=== PATIENT | male | born 1940 | race Caucasian/White ===

== ENCOUNTER 2019-02-07 20:42 | Inpatient (IN) ==
[2019-02-07] MEDS ORDERED: ASPIRIN PO ONE (21:09)
[2019-02-07] MEDS ORDERED: DUONEB (A & A) INH ONE ×2 (21:33→23:15)
[2019-02-07] MEDS ORDERED: SOLU-MEDROL IV ONE (21:37)
[2019-02-07] MEDS ORDERED: LEVAQUIN 750 MG/D5W 750 MG/150 ML IVPB IV ONE (21:38)
[2019-02-07] MEDS ORDERED: SOLU-MEDROL ONE (21:40)
--- NOTE | 2019-02-07 21:48 | Diag Imaging Result Doc PS360 ---
EXAM: CHEST-PORTABLE 02/07/2019 HISTORY: SOB TECHNIQUE: AP portable at 2 COMMENT: There is no evidence of acute cardiac or pulmonary disease. Compared to 03/13/2017 there has been no significant change in the appearance of the chest. IMPRESSION: No acute disease. Electronically signed by Dalton Small 02/07/2019 9:46 PM
[2019-02-07 22:06] LABS: BASO# 0.02 X1000 (0.0-0.2); BASO% 0.3 % (0.0-0.8); EOS% 5.4 % (0.0-10.0); HEMATOCRIT 49.8 % (42.0-52.0); HEMOGLOBIN 16.3 g/dL (14.0-18.0); LYMPH# 1.43 X1000 (1.2-3.4); LYMPH% 19.4 % (20.5-51.1); MCH 30.8 PG (27-31); MCHC 32.7 g/dL (33-37); MCV 94.1 FL (81-99); MONO# 0.71 X1000 (0.11-0.59); MONO% 9.6 % (1.7-9.3); MPV 10.5 FL (7.4-10.4); NEUT# 4.83 X1000 (1.4-6.5); NEUT% 65.3 % (42.2-75.2); PLT 207 X1000 (130-400); RBC 5.29 XMIL (4.7-6.1); RDW 12.9 % (11.5-14.5); WBC 7.39 X1000 (4.8-10.8)
[2019-02-07 22:12] LABS: INR 2.38; PROTIME 27.7 Seconds (11.0-16.0); PTT 43.1 Seconds (22.3-41.8)
[2019-02-07 22:36] LABS: ALB/GLOB RATIO 1.8; ALBUMIN 4.4 g/dL (3.5-5.0); CALCIUM 8.9 mg/dL (8.8-10.2); CREATININE 1.2 mg/dL (0.7-1.2); POTASSIUM 4.1 mmol/L (3.5-5.1); TOTAL BILIRUBIN 0.7 mg/dL (0.20-1.00); TOTAL PROTEIN 6.9 g/dL (6.3-8.3)
[2019-02-07 22:49] LABS: ALLEN TEST YES; BE 1.9 mmoll (-3.0-3.0); BLOOD TYPE ARTERIAL; HCO3-(ACT) 26.1 mmoll (20.0-26.0); O2(CT) 20.1 mL/dL (15.0-23.0); PCO2(98.6) 41 mmHg (35-45); PO2(98.6) 51 mmHg (60-100); SAMPLE BLOOD; THB 16.1 g/dL (11.5-17.4); pH(98.6) 7.42 (7.35-7.45)
[2019-02-07 22:52] LABS: MODALITY CANNULA; O2HB 89.2 % (95.0-99.0)
[2019-02-07 23:08] LABS: CK INDEX 1.9 (0.0-2.5); CK-MB 5.23 ng/mL (0.0-5.0)
[2019-02-08] MEDS ORDERED: LASIX IV ONE (01:55)
--- NOTE | 2019-02-08 01:57 | PROVIDER DOCUMENTATION ---
This chart was entered by Shruthi Higginbotham Scribe, acting as scribe for Francie Calderon MD. HPI-Respiratory General - General Chief Complaint: Shortness of Breath Stated Complaint: CHEST PAIN/SOB Time Seen by Provider: 02/07/19 21:21 Source: patient, family Allergies/Adverse Reactions: Patient Allergies Allergy/AdvReac Type Severity Reaction Status Date / Time No Known Allergies Allergy Verified 02/07/19 22:58 Home Medications: Home Medication List Medication Instructions Recorded Confirmed Last Taken Type Cholecalciferol (Vitamin D3) [D3 1,000 unit PO DAILY 08/04/17 02/07/19 08/11/17 09:00 History Dots] Garlic 1,000 mg PO DAILY 08/04/17 02/07/19 02/07/19 History Metoprolol Succinate E.r. [Toprol 25 mg PO DAILY 08/04/17 02/07/19 02/06/19 History Xl] Multivitamin [Multivitamins] 1 each PO DAILY 08/04/17 08/12/17 08/11/17 09:00 History Amlodipine Bes/Olmesartan Med 1 each PO DAILY 08/12/17 02/07/19 02/07/19 History [Amlodipine-Olmesartan 5-20 mg] Magnesium 250 mg PO DAILY 08/12/17 02/07/19 08/11/17 09:00 History Turmeric/Turmeric Ext/Pepr Ext 1 each PO DAILY 08/12/17 08/12/17 02/07/19 History [Turmeric Complex 500 mg Cap] Warfarin [Coumadin] 5 mg PO QHS #0 08/13/17 02/07/19 02/06/19 Rx Albuterol Sulfate Inhaler 02/07/19 02/07/19 19:00 History [Ventolin Hfa] Omeprazole 02/07/19 02/07/19 History Tiotropium Br/Olodaterol HCl 02/07/19 02/06/19 History [Stiolto Respimat Inhal Dingess] - History of Present Illness-Resp Nature of Presenting Problem: 79 yom w/family at bedside cc sob, cp starting yesterday. pt is [place]. sts pt said chest tight and sob this am, has productive cough, and used inhalers (has 2) today. cough started last night. pt has hx of copd and sts pt wheezes normally. pt has no o2 at home. pt is nonsmoker, denies alcohol and rec drugs. Review of Systems - Adult - REVIEW OF SYSTEMS - ADULT Constitutional: reports: no symptoms reported. denies: chills, fever, fatique Eyes: reports: no symptoms reported. denies: discharge, dry eyes, blurred vision Ears, Nose, Mouth & Throat: reports: see HPI, hearing loss ([place]). denies: loose teeth, mouth/dental pain, throat pain Cardiovascular: reports: see HPI, chest pain (tightness). denies: heart murmur, orthopnea, palpitations Respiratory: reports: see HPI, chronic cough (copd), excessive sputum production , shortness of breath, wheezing. denies: dyspnea on exertion, hemoptysis, pleurisy Gastrointestinal: reports: no symptoms reported. denies: abdominal pain, diarrhea, nausea, vomiting Genitourinary: reports: no symptoms reported Musculoskeletal: reports: no symptoms reported Integumentary: reports: no symptoms reported Neurological: reports: no symptoms reported. denies: dizziness/vertigo, headache/migraines, numbness Psychiatric: reports: no symptoms reported Endocrine: reports: no symptoms reported Hematologic/Lymphatic: reports: no symptoms reported Allergic/Immunologic: reports: no symptoms reported All Other Systems: Reviewed and Negative Past History - Adult - PAST MEDICAL HISTORY-ADULT Review of Records: reports: Old Records Reviewed, Nursing Assessment Review, Medications Reviewed, Social history reviewed & non-contributory. Major Childhood Illnesses: reports: denies history Cardiovascular: reports: HTN Respiratory: reports: COPD Gastrointestinal: reports: denies history Obstetrical/Gynecological: reports: denies history Genitourinary: reports: prostate cancer Musculoskeletal: reports: denies history Neurological: reports: denies history Endocrine/Immune: reports: denies history Other Conditions: reports: denies history - PRIOR SURGERIES/PROCEDURES Surgical/Procedure History: reports: appendectomy - IMMUNIZATION STATUS Childhood Immunizations: See Nurse Assessment Flu Vaccine: See Nurse Assessment - FAMILY HISTORY Family History: reviewed, not pertinent - SOCIAL HISTORY Smoking: cigarettes, other (former) Substance Use: none/never Physical Exam-General - PHYSICAL EXAM-ADULT Initial Vital Signs Reviewed: Yes - CONSTITUTIONAL General Appearance: appears well, alert, no apparent distress. negative: lethargic, slow to respond, obtunded - EYES Eyes: PERRL/EOMI, pink conjunctivae - HEAD, EARS, NOSE, MOUTH & THROAT HENMT: normocephalic/atraumatic, moist mucous membranes, normal ENT inspection, TMs normal, pharynx normal. negative: angioedema, pharyngeal erythema, tonsillar exudate, TM abnormal, TM obscurred by cerumen, frontal tenderness - NECK Neck: non-tender, full range of motion, supple, normal inspection - RESPIRATORY Respiratory: chest non-tender, no pleuratic chest pain, no respiratory distress, no accessory muscle use, decreased breath sounds (rt mid lobe), wheezing. negative: lungs clear, normal breath sounds, respiratory distress, accessory muscle use, pain on inspiration, pleural rub - CARDIOVASCULAR Cardiovascular: normal peripheral pulses, no edema, no gallop, no JVD, no murmur , tachycardia. negative: regular rate, rhythm, JVD, bradycardia - GASTROINTESTINAL (ABDOMEN) Abdominal Exam: normal bowel sounds, non tender, soft - LYMPHATIC Lymphatic: no adenopathy - MUSCULOSKELETAL Back Exam: normal inspection, no CVA tenderness, no vertebral tenderness Extremity: normal range of motion, non-tender, normal inspection Peripheral Pulses: radial (R): 2+, radial (L): 2+ - SKIN Integumentary: normal color, normal turgor, warm/dry - NEUROLOGIC Neurologic: grossly normal, no motor/sensory deficits - PSYCHIATRIC Psych/Mental Status: normal mood/affect, normal thought content, normal thought process, oriented x 3 - HEART Score HEART Score: History: Slightly Suspicious HEART Score: ECG: Non-Specific Repolarization Disturbance/LBBB/PM HEART Score: Age: > or = 65 Years HEART Score: Risk Factors for Atherosclerotic Disease: 1 or 2 Risk Factors HEART Score: Troponin: < or = Normal Limit Total HEART Score:: 4 Progress - PLAN OF CARE/RESULTS Progress/Plan/Lab Results: Vital Signs - 8 hr 02/07/19 20:43 02/07/19 23:07 Temperature 98.8 F Pulse Rate 103 H 98 H Respiratory Rate 20 20 Blood Pressure 172/93 O2 Sat by Pulse Oximetry 88 L 97 Laboratory Results - last 24 hr 02/07/19 02/07/19 02/07/19 21:55 21:55 21:55 WBC 7.39 RBC 5.29 Hgb 16.3 Hct 49.8 MCV 94.1 MCH 30.8 MCHC 32.7 L RDW Std Deviation 12.9 Plt Count 207 MPV 10.5 H Immature Gran % (Auto) 0.0 Neut % (Auto) 65.3 Lymph % (Auto) 19.4 L Angelina % (Auto) 9.6 H Eos % (Auto) 5.4 Baso % (Auto) 0.3 Immature Gran # (Auto) 0.00 Neut # (Auto) 4.83 Lymph # (Auto) 1.43 Angelina # (Auto) 0.71 H Eos # (Auto) 0.40 Baso # (Auto) 0.02 PT INR PTT (Actin FS) Specimen Type Sample Site pH pCO2 pO2 HCO3 Base Excess Oxyhemoglobin ABG O2 Sat (Calculated) ABG O2 Saturation ABG Carboxyhemoglobin ABG Methemoglobin Theo Test A-a O2 Difference Total Hemoglobin Lactate Liter Flow Blood Gas Modality FiO2 % Sodium 144 Potassium 4.1 Chloride 107 Carbon Dioxide 26 Anion Gap 11 BUN 13 Creatinine 1.2 Estimated GFR/1.73 m2 59 BUN/Creatinine Ratio 11 Glucose 115 H Calculated Osmolality 288 Calcium 8.9 Total Bilirubin 0.70 AST 21 ALT 15 Alkaline Phosphatase 76 Creatine Kinase 281 H Creatine Kinase Index 1.9 CK-MB (CK-2) 5.23 H Troponin T Hye-[id number]-[id number] Pept 1353 H Total Protein 6.9 Albumin 4.4 Globulin 2.5 Albumin/Globulin Ratio 1.8 02/07/19 02/07/19 02/07/19 21:55 21:55 22:42 WBC RBC Hgb Hct MCV MCH MCHC RDW Std Deviation Plt Count MPV Immature Gran % (Auto) Neut % (Auto) Lymph % (Auto) Angelina % (Auto) Eos % (Auto) Baso % (Auto) Immature Gran # (Auto) Neut # (Auto) Lymph # (Auto) Angelina # (Auto) Eos # (Auto) Baso # (Auto) PT 27.7 H INR 2.38 PTT (Actin FS) 43.1 H Specimen Type ARTERIAL Sample Site R BRACHIAL pH 7.42 pCO2 41 pO2 51 L HCO3 26.1 H Base Excess 1.9 Oxyhemoglobin 89.2 L* ABG O2 Sat (Calculated) 20.1 ABG O2 Saturation 92.0 L ABG Carboxyhemoglobin 2.00 ABG Methemoglobin 1.0 Theo Test YES A-a O2 Difference 126.0 Total Hemoglobin 16.1 Lactate 0.90 Liter Flow 3.0 Blood Gas Modality CANNULA FiO2 % 32.0 Sodium Potassium Chloride Carbon Dioxide Anion Gap BUN Creatinine Estimated GFR/1.73 m2 BUN/Creatinine Ratio Glucose Calculated Osmolality Calcium Total Bilirubin AST ALT Alkaline Phosphatase Creatine Kinase Creatine Kinase Index CK-MB (CK-2) Troponin T < 0.010 Czm-[id number]-Qrrtzfgdfvf Pept Total Protein Albumin Globulin Albumin/Globulin Ratio Orders Category Date Time Status Cardiac Monitoring DIRECTED Care 02/07/19 21:10 Active Oxygen Therapy- ED Nursing DIRECTED Care 02/07/19 21:10 Active Saline Loc NOW Care 02/07/19 21:10 Active CHEST-PORTABLE [RAD] Stat Exams 02/07/19 21:10 Completed CTA [CT ANGIOGRM PULMONARY ARTERIES] [CT] Stat Exams 02/07/19 23:46 Taken ABG [RESP] Routine Lab 02/07/19 22:42 Completed CBC WITH ELECTRONIC DIFF [HEME] Stat Lab 02/07/19 21:55 Completed CK PROFILE [SP CHEM] Stat Lab 02/07/19 21:55 Completed COMPREHENSIVE METABOLIC PANEL [CHEM] Stat Lab 02/07/19 21:55 Completed PRO B-NATRIURETIC PEPTIDE Stat Lab 02/07/19 21:55 Completed PROTIME WITH INR [COAG] Stat Lab 02/07/19 21:55 Completed PTT [COAG] Stat Lab 02/07/19 21:55 Completed TROPONIN T Stat Lab 02/07/19 21:55 Completed Albuterol 2.5MG/Ipratrop 0.5MG [Duoneb (A & A)] Med 02/07/19 21:33 Di scontinued 3 ml INH NOW ONE Albuterol 2.5MG/Ipratrop 0.5MG [Duoneb (A & A)] Med 02/07/19 23:15 Discontinued 3 ml INH NOW ONE Aspirin Med 02/07/19 21:09 Discontinued 325 mg PO NOW ONE Furosemide [Lasix] Med 02/08/19 01:55 Discontinued 40 mg IV NOW ONE Levofloxacin 750 mg/D5w [Levaquin 750 mg/D5w] Med 02/07/19 21:38 Discontinued 750 mg in 150 ml IV NOW Methylprednisolone Sod Succ [Solu-Medrol] Med 02/07/19 21:40 Discontinued 125 mg .ROUTE .STK-MED ONE Methylprednisolone Sod Succ [Solu-Medrol] Med 02/07/19 21:37 Discontinued 125 mg IV NOW ONE Aerosol Treatments Routine Oth 02/07/19 21:34 Completed Aerosol Treatments Routine Oth 02/07/19 23:15 Completed Aerosol Treatments Stat Oth 02/07/19 21:34 Completed Aerosol Treatments Stat Oth 02/07/19 23:15 Completed CP/SOB/Palp >45 yrs of Age Stat Oth 02/07/19 21:09 Ordered EKG [EKG] Stat Ther 02/07/19 21:10 Ordered Result Diagrams: 02/07/19 21:55 02/07/19 21:55 - REASSESSMENT Reassessment #1 Time Reassessed: 22:50 (s/p duonebx2) Status: improving 2 Time Reassessed: 23:40 (spoke with dr. Heard for admission copd exac, recommend to have cta done. pending on results prior to admission.) - CONSULTS/PCP/HOSPITALIST Notification #1 *Consult/PCP/Hospitalist*: Dr. Heard Time Discussed: 01:56 Consult Disposition: Admit Departure - Departure Date of Disposition Decision: 02/08/19 Time of Disposition Decision: 01:56 DIAGNOSIS: COPD exacerbation, Elevated brain natriuretic peptide (BNP) level Disposition: ADMITTED INPATIENT 09 Certified Medical Emergency: Emergent Condition: Stable Referrals and Follow-Ups: Mathieu Muñoz DO [Primary Care Provider] - - Critical Care Note This patient required my direct & personal management of CC.: No Attestation - Physician/ SUHA Attestation Patient care was provided by Advanced Practice Provider:: No The physician spent face to face time with patient:: Yes Advanced Practice Provider documentation review:: Supervising physician onsite and consulted in the evaluation and care of this patient. The physician did have a face to face encounter with the patient. This chart was documented by the indicated scribe, (Shruthi Higginbotham Scribe) and accurately reflects the services I performed and decisions made by me, Francie Calderon MD, as attested by the provider's signature.
--- NOTE | 2019-02-08 04:02 | HISTORY AND PHYSICAL ---
PRIMARY CARE PHYSICIAN: Mathieu Muñoz DO. CHIEF COMPLAINT: Shortness of breath and coughing times several days. HISTORY OF PRESENTING ILLNESS: The patient is a 79-year-old male with a history of atrial fibrillation, hypertension and COPD who presented to the emergency department with several days history of worsening shortness of breath and coughing. The patient states that he could not catch his breath. He tried his inhalers; however, he did not have any improvement. He was evaluated in the emergency department, he was given duo nebs and started on Solu-Medrol. He had some improvement; however, due to his presenting symptoms he will require admission for further management. At the time of my examination the patient denied any headache, fever, chills, nausea, vomiting, diarrhea, hemoptysis, melena, or weight changes, but complained of coughing and shortness of breath. PAST MEDICAL HISTORY: Includes atrial fibrillation, hypertension, COPD. PAST SURGICAL HISTORY: Appendectomy, prostatectomy. ALLERGIES: No known drug allergies. CURRENT MEDICATIONS: Include Ventolin inhaler, amlodipine, olmesartan 5/20 one p.o. daily, metoprolol 25 mg p.o. daily, warfarin 5 mg p.o. at bedtime. SOCIAL HISTORY: He is a former smoker. Denies any history of alcohol or illicit drug use. FAMILY HISTORY: No history of coronary disease. REVIEW OF SYSTEM: Fourteen point review of systems is as in the HPI, other systems negative. PHYSICAL EXAMINATION: GENERAL: A cooperative friendly male. He is resting more comfortably now. VITAL SIGNS: Temperature 98.8 degrees, pulse 103, respirations 20, blood pressure 172/93. His O2 saturation is 88%. HEENT: Atraumatic and normocephalic. Extraocular movements intact. PERRLA. NECK: No masses. CHEST: Decreased breath sounds. Scattered wheezes. CARDIOVASCULAR: Regular rate and rhythm. ABDOMEN: Soft. Positive bowel sounds. EXTREMITIES: No edema. NEUROLOGIC: He is awake, alert, and oriented x3. GENITOURINARY: No bladder distention. SKIN: Warm. LABORATORIES AND STUDIES: WBCs 7.39, hemoglobin 16.3, hematocrit 49, platelets 207,000. INR is 2.38. Sodium 144, potassium 4.1, chloride 107, CO2 is 26, BUN is 13, creatinine is 1.2, glucose 115, proBNP is 1353, troponin 0.010. Chest x-ray no acute disease. ASSESSMENT: The patient is a 79-year-old male with a history of atrial fibrillation, hypertension and chronic obstructive pulmonary disease who had presented to the emergency department with several days history of worsening shortness of breath and cough. He was found in the emergency department, clinically to having an exacerbation of chronic obstructive pulmonary disease; however, it was also noted that he had elevated BNP which was suspicious for probable CHF. Subsequently he will require admission for further management. 1. Chronic obstructive pulmonary disease exacerbation. 2. Elevated brain natriuretic peptide, suspected congestive heart failure. 3. Atrial fibrillation. 4. Hypertension. PLAN: 1. We will admit the patient to medical floor with telemetry. 2. We will continue with duo nebs, IV Solu-Medrol and IV antibiotics. 3. We will check an echocardiogram. 4. Continue to monitor the patient on telemetry. 5. We will monitor blood pressures and antihypertensive agent. 6. Restart other home medications. 7. The patient is already on anticoagulation that will suffice for DVT prophylaxis. 8. We will continue to follow, reassess and make further recommendation based on the patient's clinical course. cc: Jeff Heard MD MTDD
[2019-02-08] MEDS: DUONEB (A & A) INH SCH ×6 (04:19→23:35)
[2019-02-08] MEDS: SOLU-MEDROL IV SCH ×3 (06:45→21:34)
--- NOTE | 2019-02-08 07:05 | EKG Report ---
Test Performed on : 02/07/2019 8:49:44 PM Test Reason : SOB Blood Pressure : / mmHG Vent. Rate : 099 BPM Atrial Rate : 069 BPM P-R Int : 000 ms QRS Dur : 120 ms QT Int : 364 ms P-R-T Axes : 000 -74 081 degrees QTc Int : 467 ms Atrial fibrillation. Left axis deviation Anteroseptal infarct , age undetermined Abnormal ECG No previous ECGs available Unconfirmed Result
--- NOTE | 2019-02-08 07:36 | Diag Imaging Result Doc PS360 ---
EXAM: CT ANGIOGRM PULMONARY ARTERIES INDICATION: pe TECHNIQUE: This exam was performed using automated exposure control, adjustment of mA or kV according to patient size, and/or use of iterative reconstruction technique. Thin section axial images and 3-D MIPS were obtained. COMPARISON: None. FINDINGS: There is no evidence of pulmonary embolism. There is mild patchy aortic atherosclerotic calcification. There is no evidence of aortic aneurysm or dissection. There is no cardiomegaly. There are calcified mediastinal and hilar lymph nodes indicating prior granulomatous disease. The lungs are essentially clear. No airspace consolidations are appreciated. There is no pleural fluid collection and no pneumothorax. Limited views of the upper abdomen reveals a small hiatal hernia. There are calcified granulomata throughout the spleen. There is moderate lumbar spondylosis. The bony structures are intact. IMPRESSION: No evidence of pulmonary embolism or other definite acute chest pathology. Electronically signed by Sanjay Higginbotham 02/08/2019 7:33 AM
[2019-02-08 08:45] LABS: INR 2.19
[2019-02-08] MEDS: VITAMIN D PO SCH (10:52)
[2019-02-08] MEDS: TOPROL XL PO SCH (10:52)
[2019-02-08] MEDS: AZOR 10/40 MG PO SCH (14:02)
--- NOTE | 2019-02-08 14:18 | ECHO REPORT ---
ORDER DATE: 02/08/2019 INTERPRETING PHYSICIAN: Dr. Anthony Lee ECHOCARDIOGRAPHIC MEASUREMENTS: 1. Interventricular septum: 1.3 cm. 2. Posterior wall: 0.9 cm. 3. Diastolic diameter: 4.4 cm. 4. Left atrium: 3.9 cm. 5. Aortic root: 3.9 cm. SUMMARY OF THE 2-DIMENSIONAL IMAGIN. Normal left ventricular cavity size. 2. Estimated ejection fraction of 65% to 70%. 3. Aortic valve leaflets are calcified, trileaflet. 4. Pulmonic valve was not well visualized. 5. Tricuspid valve was normal. 6. Mitral valve was normal. 7. There is biatrial enlargement. Tachycardia was not noted. Heart rate varying between 115 to 120 beats per minute. 8. Peak velocity across the tricuspid valve was 3.4 meters per second. 9. Pulmonary artery systolic pressure 57 mmHg. 10. There is mild tricuspid regurgitation. 11. Peak velocity across the aortic valve was 2.6 msec with a mean gradient of 8 mmHg. 12. There is aortic sclerosis associated with mild aortic regurgitation. 13. There is no pericardial effusion or obvious intracardiac mass or thrombus seen. cc: MD Jeff Holley MD
[2019-02-08] MEDS: LEVAQUIN 500 MG/D5W 500 MG/100 ML IVPB IV SCH (21:33)
[2019-02-08] MEDS: COUMADIN PO SCH (21:34)
[2019-02-09] MEDS: DUONEB (A & A) INH SCH ×6 (03:24→23:21)
[2019-02-09] MEDS: SOLU-MEDROL IV SCH ×3 (05:38→21:36)
[2019-02-09 07:27] LABS: INR 2.04; PROTIME 24.6 Seconds (11.0-16.0)
[2019-02-09 07:31] LABS: HEMATOCRIT 43.8 % (42.0-52.0); HEMOGLOBIN 14.3 g/dL (14.0-18.0); IMM GRAN# 0.03 X1000 (0.0-0.04); IMM GRAN% 0.2 % (0.0-0.5); LYMPH# 1.03 X1000 (1.2-3.4); LYMPH% 6.9 % (20.5-51.1); MCH 31.2 PG (27-31); MCHC 32.6 g/dL (33-37); MCV 95.4 FL (81-99); MONO# 0.52 X1000 (0.11-0.59); MONO% 3.5 % (1.7-9.3); MPV 10.9 FL (7.4-10.4); NEUT# 13.33 X1000 (1.4-6.5); NEUT% 89.4 % (42.2-75.2); PLT 200 X1000 (130-400); RBC 4.59 XMIL (4.7-6.1); WBC 14.91 X1000 (4.8-10.8)
[2019-02-09 07:40] LABS: CALCIUM 8.7 mg/dL (8.8-10.2); CREATININE 1.4 mg/dL (0.7-1.2); POTASSIUM 4.3 mmol/L (3.5-5.1)
[2019-02-09] MEDS: VITAMIN D PO SCH (08:09)
[2019-02-09] MEDS: AZOR 10/40 MG PO SCH (08:09)
[2019-02-09] MEDS: TOPROL XL PO SCH (08:10)
[2019-02-09 08:29] LABS: LYMPHS 6 % (21-51); MONO 5 % (1-9); SEGS 89 % (42-75)
--- NOTE | 2019-02-09 12:11 | PROGRESS NOTE ---
DATE: 02/09/2019 SUBJECTIVE: This patient is still complaining of shortness of breath and wheezing. His BUN and creatinine are increased a little bit compared with yesterday. I will stop the olmesartan, and also the amlodipine since the blood pressure has been borderline low, sometimes in the 90s. I will monitor. He is eating okay. OBJECTIVE: Vital Signs: Temperature 97.6 degrees, pulse 111, respiratory rate 18, blood pressure 117/79, and oxygen saturation 94% on 2 L of nasal cannula. HEENT: Head normocephalic. No trauma. PERRLA. Neck: Supple. No JVD. No masses. Central trachea. Chest: Decreased breath sounds globally with prolonged expiratory phase, and expiratory wheezing bilaterally. Abdomen: Soft, nontender, and nondistended. No hepatosplenomegaly. Extremities: No edema. No clubbing. No cyanosis. Neurological: The patient is alert and oriented x3. No focal deficits. LABORATORY: WBC 14.9, hemoglobin 14.3, hematocrit 43.8, and platelets 200,000. Sodium 136, potassium 4.3, chloride 101, bicarbonate 23, BUN 25, creatinine 1.4, glucose 153, and calcium 8.7. ASSESSMENT AND PLAN: 1. COPD exacerbation. He still complains of shortness of breath and wheezing. I will continue with steroids, breathing treatment, oxygen, and pulmonary toilet, levofloxacin, and let's see how he does. 2. Pulmonary hypertension by echo. The pulmonary artery systolic pressure is around 57 mmHg. Likely, this is due to his COPD and probably pulmonary fibrosis. We will continue with the same management. 3. Atrial fibrillation. Continue with metoprolol and anticoagulation. 4. Hypertension. Actually, the blood pressure has been sometimes in the 90s. I will stop the amlodipine and olmesartan because this patient has also an acute kidney injury, and sometimes the blood pressure has been in the 90s. We will monitor. Continue with only metoprolol. 5. Acute on chronic kidney disease. This patient received a dose of Lasix, and also he has been on olmesartan. We will monitor for now. He is eating good. I will monitor. 6. Calcified aortic Valves per echo report. Aware. 7. Leukocytosis likely secondary to steroids. We will monitor. cc: MD ELYSIA Galicia
[2019-02-09] MEDS: MIRALAX PO SCH (16:56)
[2019-02-09] MEDS: LEVAQUIN 500 MG/D5W 500 MG/100 ML IVPB IV SCH (21:37)
[2019-02-09] MEDS: COUMADIN PO SCH (21:37)
[2019-02-10] MEDS: DUONEB (A & A) INH SCH ×3 (03:32→11:03)
[2019-02-10] MEDS: SOLU-MEDROL IV SCH ×3 (04:55→21:38)
[2019-02-10 07:48] LABS: INR 2.06; PROTIME 24.7 Seconds (11.0-16.0)
[2019-02-10 07:48] LABS: HEMATOCRIT 45.2 % (42.0-52.0); IMM GRAN# 0.03 X1000 (0.0-0.04); IMM GRAN% 0.2 % (0.0-0.5); LYMPH# 0.95 X1000 (1.2-3.4); LYMPH% 7.9 % (20.5-51.1); MCH 31.3 PG (27-31); MCHC 33.2 g/dL (33-37); MCV 94.2 FL (81-99); MONO# 0.48 X1000 (0.11-0.59); MPV 10.6 FL (7.4-10.4); NEUT# 10.59 X1000 (1.4-6.5); NEUT% 87.9 % (42.2-75.2); PLT 211 X1000 (130-400); RDW 13.2 % (11.5-14.5); WBC 12.05 X1000 (4.8-10.8)
[2019-02-10 08:04] LABS: CALCIUM 8.9 mg/dL (8.8-10.2); CREATININE 1.3 mg/dL (0.7-1.2); POTASSIUM 4.6 mmol/L (3.5-5.1)
[2019-02-10 08:11] LABS: EOS 2 % (1-10); LYMPHS 6 % (21-51); SEGS 90 % (42-75)
[2019-02-10] MEDS: MIRALAX PO SCH (08:31)
[2019-02-10] MEDS: THERA M PLUS PO SCH (08:32)
[2019-02-10] MEDS: TOPROL XL PO SCH (08:32)
[2019-02-10] MEDS: MAGNESIUM GLUCONATE PO SCH (08:34)
[2019-02-10] MEDS: VITAMIN D PO SCH (08:36)
[2019-02-10] MEDS: XOPENEX NEB INH SCH ×3 (11:30→19:37)
[2019-02-10] MEDS: ATROVENT NEB INH SCH ×3 (11:30→19:37)
[2019-02-10] MEDS ORDERED: NS NEB INH SCH (12:30)
--- NOTE | 2019-02-10 13:54 | PROGRESS NOTE ---
DATE: 02/10/2019 SUBJECTIVE: This patient is still complaining of shortness of breath and wheezing. BUN increased a little bit compared with yesterday, but creatinine decreased from 1.3 to 1.2. His last creatinine was done in 2017; so, at this point, I am not quite sure if this is his baseline or not. As per the patient, he feels just a little bit better. We will continue with same management. OBJECTIVE: Vital Signs: Temperature 98 degrees, pulse 126, respiratory rate 15, blood pressure 107/61, oxygen saturation 94% on 3 L of nasal cannula. HEENT: Head normocephalic. No trauma. PERRLA. Neck: Supple. No JVD. No masses. Central trachea. Chest: Decreased breath sounds globally with prolonged expiratory phase and expiratory wheezing bilaterally. Abdomen: Soft, nontender, nondistended. No hepatosplenomegaly. Extremities: No edema, no clubbing, no cyanosis. Neurological examination: The patient is alert and oriented x3. No focal deficits. LABORATORY: WBC 12, hemoglobin 15, hematocrit 45.2, platelets 211. INR 2. Sodium 138, potassium 4.6, chloride 101, bicarbonate 25. BUN 29, creatinine 1.3, glucose 147, calcium 8.9. ASSESSMENT AND PLAN: 1. Chronic obstructive pulmonary disease exacerbation. This patient is still complaining of shortness of breath and wheezing. I will continue with steroids, breathing treatment, oxygen supplementation, pulmonary toilet, antibiotics. 2. Pulmonary hypertension by echocardiogram. His pulmonary artery systolic pressure is around 57 mmHg. Likely this is due to his long-standing chronic obstructive pulmonary disease; maybe he has some pulmonary changes like fibrosis. We will continue with the same management. 3. Atrial fibrillation. Continue with metoprolol and anticoagulation. 4. Hypertension; actually the blood pressure has been stable. I have stopped the amlodipine and olmesartan because the patient also has some kidney dysfunction. Continue only with metoprolol. 5. Acute on chronic kidney disease. This patient received a dose of Lasix upon admission, and he has been on olmesartan, which has been stopped. For now, we will monitor. He has been eating good and not having problems urinating at this moment. 6. Constipation. I will add Dulcolax suppository to his MiraLAX oral. 7. Calcified aortic valves per echocardiogram report. Aware. 8. Leukocytosis likely secondary to steroids. Will monitor. cc: Rio Pan MD
[2019-02-10] MEDS: DULCOLAX PR SCH (14:15)
[2019-02-10] MEDS: COUMADIN PO SCH (21:38)
[2019-02-10] MEDS: LEVAQUIN 500 MG/D5W 500 MG/100 ML IVPB IV SCH (21:38)
[2019-02-11] MEDS: SOLU-MEDROL IV SCH ×2 (03:59→16:21)
[2019-02-11] MEDS: XOPENEX NEB INH SCH ×6 (05:03→23:38)
[2019-02-11] MEDS: ATROVENT NEB INH SCH ×6 (05:03→23:38)
[2019-02-11 07:01] LABS: HEMATOCRIT 49.3 % (42.0-52.0); MCH 31.4 PG (27-31); MCHC 32.5 g/dL (33-37); MCV 96.7 FL (81-99); MPV 10.5 FL (7.4-10.4); RBC 5.1 XMIL (4.7-6.1); RDW 13.6 % (11.5-14.5); WBC 12.56 X1000 (4.8-10.8)
[2019-02-11 07:26] LABS: CALCIUM 9.2 mg/dL (8.8-10.2); CREATININE 1.2 mg/dL (0.7-1.2); POTASSIUM 4.7 mmol/L (3.5-5.1)
[2019-02-11] MEDS ORDERED: CARDIZEM PO ONE (08:33)
[2019-02-11] MEDS: TOPROL XL PO SCH (09:23)
[2019-02-11] MEDS: MIRALAX PO SCH (09:23)
[2019-02-11] MEDS: MAGNESIUM GLUCONATE PO SCH (09:24)
[2019-02-11] MEDS: VITAMIN D PO SCH (09:25)
[2019-02-11] MEDS: DULCOLAX PR SCH (09:25)
[2019-02-11] MEDS: THERA M PLUS PO SCH (09:25)
--- NOTE | 2019-02-11 13:10 | PROGRESS NOTE ---
DATE: 02/11/2019 SUBJECTIVE: This patient is still wheezing but he is feeling better, his heart rate has been a little bit elevated. I will add diltiazem to his medications. Blood pressure has been stable. Hopefully, I can discharge this patient in the next 24 hours. OBJECTIVE: Vital Signs: Temperature 97.7 degrees, pulse 111, respiratory rate 18, blood pressure 118/77, and oxygen saturation 100% on room air. HEENT: Head normocephalic. No trauma. PERRLA. Neck: Supple. No JVD. No masses. Central trachea. Chest: Decreased breath sounds globally with prolonged expiratory phase and expiratory wheezing bilaterally. Abdomen: Soft, nontender, and nondistended. No hepatosplenomegaly. Extremities: No edema. No clubbing. No cyanosis. Neurological: The patient is alert and oriented x3. No focal deficits. LABORATORY: WBC 12.5, hemoglobin 16, hematocrit 49.3, and platelets 238,000. Sodium 140, potassium 4.7, chloride 103, bicarbonate 25, BUN 26, creatinine 1.2, glucose 143, and calcium 9.2. ASSESSMENT AND PLAN: 1. Chronic obstructive pulmonary disease exacerbation. Continue with same management. No changes. 2. Pulmonary hypertension by echocardiogram. His pulmonary artery systolic pressure is around 57 mmHg. This is likely due to his longstanding chronic obstructive pulmonary disease, and maybe some pulmonary changes like fibrosis. Continue with same treatment. 3. Atrial fibrillation. His heart rate has been above 110. I will add diltiazem 30 every 6 hours to see how he does. Blood pressure has been stable. 4. Hypertension, stable. 5. Acute on chronic kidney disease. This patient received a single dose of Lasix upon admission, and also he has been on olmesartan which I have stopped already a few days ago. For now, I will continue with the same management. Kidney function is stable, and BUN and creatinine are trending down. 6. Constipation. He had a small bowel movement yesterday. We will continue with Dulcolax suppository and MiraLAX p.o. 7. Calcified aortic valves per echocardiogram report. Aware. 8. Leukocytosis, likely secondary to steroids. cc: Rio Pan MD
[2019-02-11] MEDS: CARDIZEM PO SCH ×2 (16:20→21:46)
[2019-02-11] MEDS: LEVAQUIN 500 MG/D5W 500 MG/100 ML IVPB IV SCH (21:46)
[2019-02-11] MEDS: COUMADIN PO SCH (21:46)
[2019-02-12] MEDS: ATROVENT NEB INH SCH ×5 (03:22→19:24)
[2019-02-12] MEDS: XOPENEX NEB INH SCH ×5 (03:22→19:24)
[2019-02-12] MEDS: CARDIZEM PO SCH ×3 (05:44→17:36)
[2019-02-12] MEDS: SOLU-MEDROL IV SCH ×2 (05:45→17:36)
[2019-02-12 07:10] LABS: HEMATOCRIT 46.3 % (42.0-52.0); HEMOGLOBIN 15.1 g/dL (14.0-18.0); MCH 31.2 PG (27-31); MCHC 32.6 g/dL (33-37); MCV 95.7 FL (81-99); MPV 10.7 FL (7.4-10.4); RBC 4.84 XMIL (4.7-6.1); RDW 13.3 % (11.5-14.5); WBC 10.53 X1000 (4.8-10.8)
[2019-02-12 07:42] LABS: CALCIUM 8.6 mg/dL (8.8-10.2); CREATININE 1.2 mg/dL (0.7-1.2); POTASSIUM 4.8 mmol/L (3.5-5.1)
[2019-02-12] MEDS: MIRALAX PO SCH (08:06)
[2019-02-12] MEDS: DULCOLAX PR SCH ×2 (08:08→11:03)
[2019-02-12] MEDS: MAGNESIUM GLUCONATE PO SCH (08:09)
[2019-02-12] MEDS: VITAMIN D PO SCH (08:09)
[2019-02-12] MEDS: THERA M PLUS PO SCH (08:09)
[2019-02-12] MEDS: TOPROL XL PO SCH (08:12)
[2019-02-12] MEDS ORDERED: PROTONIX IV ONE (09:35)
[2019-02-12] MEDS ORDERED: SODIUM CHLORIDE 0.9% INJ ONE (09:35)
[2019-02-12] MEDS ORDERED: FLEET ENEMA PR ONE (09:38)
[2019-02-12 12:30] LABS: INR 2.55; PROTIME 29.3 Seconds (11.0-16.0)
[2019-02-12] MEDS: LACTULOSE PO SCH ×2 (12:42→17:36)
--- NOTE | 2019-02-12 14:16 | Diag Imaging Result Doc PS360 ---
EXAM: ABDOMEN FLAT/UPRIGHT HISTORY: Abdominal distention TECHNIQUE: Flat and upright, two views COMPARISON: None. FINDINGS: Prominent stool in the proximal and mid colon. The bowel loops are not dilated. No organomegaly. Prominent degenerative changes to the lumbar spine. No abnormal abdominal calcifications. IMPRESSION: Prominent constipation Electronically signed by Arnoldo Diaz 02/12/2019 2:14 PM
--- NOTE | 2019-02-12 14:16 | PROGRESS NOTE ---
DATE: 02/12/2019 SUBJECTIVE: This patient states that he has been breathing better but he is complaining of abdominal discomfort/distention. As per the patient, he has not had a good bowel movement even though he has been taking a stool softener and using suppository. His abdomen looks distended but positive bowel sounds. I will get an x-ray. I gave him already a Fleet enema but it looks it did not work. Will switch the MiraLAX for lactulose, and I will wait for the x-ray results. OBJECTIVE: Vital Signs: Temperature 97.7, pulse 105, respiratory rate 18, blood pressure 140/95, oxygen saturation 95 on room air. HEENT: Head normocephalic. No trauma. PERRLA. Neck: Supple. No JVD. No masses. Central trachea. Chest: Decreased breath sounds globally with prolonged expiratory phase and some scattered expiratory wheezing bilaterally. Abdomen: Soft, moderately distended, positive bowel sounds. Some discomfort, which is generalized. Extremities: No edema. No clubbing. No cyanosis. Neurological: The patient is alert and oriented x3. No focal deficits. LABORATORY: WBC 10, hemoglobin 15.1, hematocrit 46.3, platelets 222. INR 2.5. Sodium 141, potassium 4.8, chloride 104, bicarbonate 26, BUN 23, creatinine 1.2, glucose 133, calcium 8.6. ASSESSMENT AND PLAN: 1. Chronic obstructive pulmonary disease exacerbation. Continue with same management. I do believe he is getting better, likely this patient will be discharged in the next 24 hours. 2. Pulmonary hypertension by echocardiogram. His pulmonary arterial systolic pressure is around 57 mmHg, this is likely due to longstanding chronic obstructive pulmonary disease and maybe some pulmonary changes like fibrosis. Continue with same treatment. 3. Atrial fibrillation. Heart rate has been in mostly in the 100s and sometimes 110. I have increased the diltiazem from 30 every 6 hours to 60 every 6 hours. We will continue watching the blood pressure as well. 4. Hypertension, stable. 5. [id number] kidney disease. I do believe this is his baseline. His BUN today is 23, creatinine 1.2, which is better compared with a few days ago. No problems with urine output. 6. Constipation. He had a small bowel movement even though he is getting MiraLAX, suppositories and today he received a fleet enema. I will get an x-ray because he feels some abdominal discomfort. 7. Abdominal distention, as above. 8. Calcified aortic valves per echocardiogram report. Aware. 9. Leukocytosis likely secondary to steroids, resolved. Overall, this patient is doing better, but today his abdomen is distended and he is not having good bowel movements, just small BMs. Even though he has been getting lactulose, he has been suppositories, and today he receive an enema. I will switch the treatment to lactulose and also I will get an x-ray, probably I will use another enema this afternoon, in the other hand, I have increased the dose of the diltiazem from 30 to 60 q.6 hours to see how he does. cc: Rio Pan MD
[2019-02-12] MEDS ORDERED: MIRALAX PO SCH (21:00)
[2019-02-12] MEDS: LEVAQUIN 500 MG/D5W 500 MG/100 ML IVPB IV SCH (21:01)
[2019-02-12] MEDS: PRILOSEC PO SCH (21:01)
[2019-02-12] MEDS: COUMADIN PO SCH (21:01)
[2019-02-13] MEDS: ATROVENT NEB INH SCH ×4 (00:08→11:00)
[2019-02-13] MEDS: XOPENEX NEB INH SCH ×4 (00:08→11:00)
[2019-02-13] MEDS: CARDIZEM PO SCH (06:09)
[2019-02-13] MEDS: SOLU-MEDROL IV SCH (06:10)
[2019-02-13] MEDS: PRILOSEC PO SCH (06:17)
[2019-02-13 07:17] VITALS: BP 127/96
[2019-02-13 07:28] LABS: CALCIUM 8.6 mg/dL (8.8-10.2); CREATININE 1.2 mg/dL (0.7-1.2); POTASSIUM 4.7 mmol/L (3.5-5.1)
[2019-02-13] MEDS ORDERED: TOPROL XL PO SCH (09:15)
[2019-02-13] MEDS ORDERED: CARDIZEM CD PO SCH (09:15)
[2019-02-13] MEDS: VITAMIN D PO SCH (09:56)
[2019-02-13] MEDS: LACTULOSE PO SCH (09:56)
[2019-02-13] MEDS: DULCOLAX PR SCH (09:56)
[2019-02-13] MEDS: THERA M PLUS PO SCH (09:56)
[2019-02-13] MEDS: MAGNESIUM GLUCONATE PO SCH (09:57)
--- NOTE | 2019-02-14 01:30 | DISCHARGE SUMMARY ---
ADMISSION DATE: 02/07/2019 DISCHARGE DATE: 02/13/2019 DISCHARGE DIAGNOSES: 1. Chronic obstructive pulmonary disease exacerbation. 2. Pulmonary hypertension by echocardiogram. 3. Atrial fibrillation. 4. Hypertension. 5. Acute on chronic kidney disease, resolved. 6. Abdominal distention due to constipation. 7. Calcified aortic valve per echocardiogram report. 8. Leukocytosis likely secondary to steroids, resolved. PROCEDURES PERFORMED: 1. Chest x-ray dated 02/07/2019; impression no acute disease. 2. Pulmonary arteriogram dated 02/07/2019; impression no evidence of pulmonary embolism or other definite acute chest pathology. 3. Echocardiogram dated 02/08/2018; impression ejection fraction 65%-70%. 4. Pulmonary artery systolic pressure 57 mm Hg. Aortic valve leaflets are calcified. 5. Abdomen x-ray dated 02/12/2019; impression prominent constipation. HOSPITAL COURSE: The patient is a 79-year-old male with a past medical history of atrial fibrillation, hypertension and COPD presented to the emergency department with several days history of worsening shortness of breath and coughing. He was admitted on 02/08/2019. As per the patient he could not catch his breath, he tried his inhalers, however he has been getting worse. He was evaluated in the emergency department. He was given respiratory treatment and also steroids. He had a little bit of improvement; however, due to his presenting symptoms this patient has been admitted for further management. He was placed on steroids, breathing treatment, oxygen supplementation and antibiotics to go to the medical floor with telemetry. We will continued with his home dose of warfarin, which has been therapeutic the whole time. This patient's heart rate though has been mostly in the 101s-110s. Since his creatinine was increasing a little bit during this hospitalization, and the blood pressure has been stable we decided to stop the amlodipine/olmesartan, and the kidney function looks like it went back to his baseline. No problem with the urine output. To control better the heart rate we decided to use diltiazem, at the beginning 30 mg every 6 hours and then it has been increased to 60 mg every 6 hours, and the heart rate basically stayed about the same. Today I discussed briefly the case with Dr. Lee, and we have increased the dose of the Toprol-XL to 50 mg daily, and then we put this patient on Cardizem 180 mg daily as well. He will follow up with Dr. Apodaca next week as an outpatient. During the course of his hospitalization he was having problem moving his bowels. He was placed on MiraLAX daily and suppositories on a daily basis, but it did not work too much. Then he was switched to lactulose 3 times a day and he started moving his bowels better. X-ray showed prominent constipation. This patient is feeling much better today. He will be discharged home. We will continue with steroids which we will taper down slowly, and also a little bit of antibiotics, breathing treatment. Follow up by the Cardiology Department as an outpatient as well. 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 He will follow up with this doctor as well. At the moment of discharge this patient was in a stable medical condition, tolerating p.o. and ambulating by himself. DISCHARGE PHYSICAL EXAMINATION: Vital Signs: Temperature 97.5 degrees, pulse 114, respiratory rate 18, blood pressure 127/96, oxygen saturation 97% on room air. HEENT: Head normocephalic and atraumatic. PERRLA. Neck: Supple. No JVD. No masses. Central trachea. Chest: Decreased breath sounds globally with prolonged expiratory phase. No wheezing at the moment of my physical examination. Some crepitus at the bases. Cardiovascular: Irregularly regular rate and rhythm. Abdomen: Soft, nontender, nondistended. No hepatosplenomegaly. Extremities: No edema, no clubbing, no cyanosis. Neurological: The patient is alert and oriented x3. No focal deficits. LABORATORY DATA: Sodium 140, potassium 4.7, chloride 106, bicarbonate 23, BUN 20, creatinine 1.2, glucose 135, calcium 8.6. Laboratories from yesterday is WBC 10.5, hemoglobin 15.1, hematocrit 46.3, platelets 222,000,PT 29.3, INR 2.5. DISCHARGE MEDICATIONS: 1. Ventolin HFA 2 puff inhaler q.4 hours as needed. 2. Vitamin D3 1000 units p.o. daily. 3. Diltiazem CD 180 mg p.o. daily. 4. Garlic 1000 mg p.o. daily. 5. Lactulose 30 mL p.o. t.i.d. which will be modified/decrease frequency or dose if the patient has more than 2 bowel movements per day. 6. Levofloxacin 500 mg p.o. daily. 7. Magnesium 250 mg p.o. daily. 8. Medrol Dosepak 4 mg p.o. as directed. 9. Metoprolol succinate ER 50 mg p.o. daily. 10. Multivitamin 1 tablet p.o. daily. 11. Omeprazole 40 mg p.o. daily. 12. Stiolto Respimat inhaler spray 2 puff inhaler inhaled daily. 13. Turmeric complex 500 mg capsule, 1 capsule p.o. daily. 14. Warfarin 5 mg p.o. at bedtime. TIME SPENT: Time spent discharging this patient was 35 minutes. cc: Rio Pan MD
== END 2019-02-13 14:00 | disposition home or self-care (01) | DRG 192 ==
LOC: ED 20:42 → EDIPHOLD 02-08 02:37 → SUATTDRO 02-08 02:37 → 3N 02-08 08:38
PROVIDERS: ATTEND Internal Medicine
CPT/HCPCS: 71010; 71045; 71275; 74019; 74020; 80048; 80053; 82550; 82553; 82805; 83880; 84484; 85025; 85027; 85610; 85730; 93005; 93306; 94640; 94760; 94761; 96365; 96375; 96376; 99285; A9270; C9113; J1940; J1956; J2920; J2930; Q9967; S0164